=== PATIENT | female | born 1955 | race American Indian/Alaskan Native ===

== ENCOUNTER 2017-07-30 11:08 | Outpatient (CLI) | payer OTHER ==
--- NOTE | 2017-07-30 12:06 | XRay Report ---
Lumbar spine 3 views: History: Back pain. Findings: Generalized osteopenia. Normal height of vertebral bodies and intervertebral disc. Sclerotic articular surfaces with early degenerative changes. Degenerative changes more pronounced in the facet joints L4-5 L5-S1. No soft tissue calcification or fracture. Impression: Degenerative lumbar spine.
== END 2017-07-30 11:09 | disposition home or self-care (01) ==
LOC: SPVIMAG 11:08
DX: M47.896 Other spondylosis, lumbar region (principal); M85.88 Other specified disorders of bone density and structure, other site
CPT/HCPCS: 72100